=== PATIENT | female | born 1980 | race Caucasian/White ===

== ENCOUNTER 2018-06-14 20:18 | Emergency (ER) | payer MEDICAID, OTHER ==
[2018-06-14] MEDS: ONDANSETRON (ODT) 4 MG TAB ODT (21:09)
[2018-06-14 21:11] LABS: URINE PH (Dip) POC 6.5 (5.0-8.5)
[2018-06-14 21:11] LABS: URINE BLOOD (Dip) POC Negative (NEGATIVE); URINE GLUCOSE (Dip) POC Negative (NEGATIVE); URINE KETONES (Dip) POC 2+ (NEGATIVE); URINE LEUKOCYTE EST (Dip) POC Negative (NEGATIVE); URINE NITRITE (Dip) POC Negative (NEGATIVE); URINE TOTAL PROTEIN POC 1+ (NEGATIVE)
[2018-06-14] MEDS: FAMOTIDINE 20 MG TAB PO (21:18)
[2018-06-14] MEDS: LIDOCAINE/MYLANTA 40 ML BTL PO (21:18)
== END 2018-06-14 21:48 | disposition home or self-care (01) ==
LOC: FTE 20:18
DX: R10.13 Epigastric pain (principal)
CPT/HCPCS: 81003; 81025; 99283